=== PATIENT | male | born 1965 | race Caucasian/White ===

== ENCOUNTER 2016-09-13 05:51 | Emergency (ER) | payer SELFPAY ==
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
[2016-09-13] MEDS ORDERED: ONDANSETRON HCL INJ/PF 4 MG/2 ML SDV IV ONE (06:56)
[2016-09-13] MEDS ORDERED: HYDROMORPHONE HCL INJ/PF 2 MG/ML AMPULE IV ONE (06:57)
[2016-09-13 07:01] LABS: APPEARANCE,URINE CLEAR; BILIRUBIN,URINE NEGATIVE (NEGATIVE); GLUCOSE, URINE >=500 mg/dL (NEGATIVE); KETONES,URINE NEGATIVE (NEGATIVE); LEUKOCYTE ESTERASE,URINE NEGATIVE (NEGATIVE); NITRITE,URINE NEGATIVE (NEGATIVE); PROTEIN,URINE NEGATIVE (NEGATIVE); URINE SPECIFIC GRAVITY 1.025; UROBILINOGEN,URINE NEGATIVE mg/dL (<2.0)
[2016-09-13 07:16] LABS: URINE METHADONE SCREEN NEGATIVE; URINE OPIATES LOW NEGATIVE; URINE PHENCYCLIDINE SCREEN NEGATIVE
[2016-09-13 07:30] LABS: ALBUMIN 3.5 g/dL (3.5-5.0); ANION GAP 9 (5-19); BILIRUBIN,DIRECT 0.8 mg/dL (0.0-0.4); BILIRUBIN,TOTAL 1.1 mg/dL (0.2-1.3); CALCIUM 8.3 mg/dL (8.4-10.2); CARBON DIOXIDE 18 mmol/L (22-30); CHLORIDE 111 mmol/L (98-107); CREATININE RESULT 0.82 mg/dL (0.52-1.25); GLUCOSE 346 mg/dL (75-110); SODIUM 138.2 mmol/L (137-145)
[2016-09-13 07:36] LABS: URINE BARBITURATES SCREEN NEGATIVE
[2016-09-13 07:44] LABS: ABSOLUTE EOSINOPHILS # (AUTO) 0.1 10^3/uL (0.0-0.6); ABSOLUTE LYMPHOCYTES (AUTO) 1.8 10^3/uL (0.5-4.7); ABSOLUTE MONOCYTES (AUTO) 0.7 10^3/uL (0.1-1.4); ABSOLUTE NEUT (AUTO) 3.6 10^3/uL (1.7-8.2); BASOPHILS % (AUTO) 0.4 % (0-2); HEMATOCRIT 40.3 % (37.9-51.0); HEMOGLOBIN 14.2 g/dL (13.5-17.0); HGB HCT DIFFERENCE 2.3; LYMPHOCYTES % (AUTO) 29.5 % (13-45); MEAN CORPUSCULAR HEMOGLOBIN 32.7 pg (27.0-33.4); MEAN CORPUSCULAR HGB CONC 35.3 g/dL (32.0-36.0); MEAN CORPUSCULAR VOLUME 93 fl (80-97); MONOCYTES % (AUTO) 10.5 % (3-13); RED BLOOD COUNT 4.35 10^6/uL (4.35-5.55); RED CELL DISTRIBUTION WIDTH 13.6 % (11.5-14.0); SEGMENTED NEUTROPHILS % (AUTO) 57.6 % (42-78); WHITE BLOOD COUNT 6.2 10^3/uL (4.0-10.5)
[2016-09-13 07:49] LABS: BLOOD UREA NITROGEN 7 mg/dL (7-20); POTASSIUM 4.4 mmol/L (3.6-5.0)
[2016-09-13 07:50] LABS: ALANINE AMINOTRANSFERASE 36 U/L (21-72); ALKALINE PHOSPHATASE 79 U/L (38-126); ASPARTATE AMINO TRANSFERASE 35 U/L (17-59)
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
[2016-09-13] MEDS ORDERED: NORMAL SALINE 1000 ML 1,000 ML IV ONE (09:12)
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
[2016-09-13 12:52] VITALS: BP 153/110
== END 2016-09-13 13:01 | disposition home or self-care (01) ==
LOC: ER 05:51
DX: K29.00 Acute gastritis without bleeding (principal); K46.9 Unspecified abdominal hernia without obstruction or gangrene; R73.9 Hyperglycemia, unspecified; R10.9 Unspecified abdominal pain
CPT/HCPCS: 99284; 96361; 96374; 96375; 36415; 82962; 83690; 84443; 85025; 80053; 81001; 80307; 83036; 74177; J1170; J2405; J7030